=== PATIENT | male | born 2000 | race Hispanic/Latino ===

== ENCOUNTER 2022-06-04 22:55 | Emergency (ER) | payer OTHER, SELFPAY ==
[2022-06-04 23:00] VITALS: BP 134/70; PULSE 76; RESP 17; TEMP 36.6; O2SAT 98; BMI 29.7
--- NOTE | 2022-06-05 01:02 | ED_ITS ---
HPI - Wound/Laceration General Chief Complaint: Wound/Laceration Stated Complaint: gash on top of the head Time Seen by Provider: 06/05/22 00:52 Source: patient Mode of arrival: Ambulatory History of Present Illness HPI narrative: Patient works at the [employer]. Patient was finishing but his shift. He was picking up items off the ground. When he stood up he hit his head against a metal bolt. No loss of consciousness. However he has been sensitive to light and sound since injury. He has improved though. No nausea or vomiting. No vision changes. Injury occurred just prior to arrival. Has small puncture wound to the top of his scalp. Tetanus is up-to-date. Related Data Home Medications Medication Instructions Recorded Confirmed No Known Home Medications 06/04/22 06/04/22 Allergies Allergy/AdvReac Type Severity Reaction Status Date / Time No Known Drug Allergies Allergy Verified 06/04/22 23:03 Review of Systems Review of Systems Narrative: GENERAL: negative chills, fatigue, malaise, fever, sweats. HEENT: negative sinus pain, ear pain, sore throat RESPIRATORY: negative dyspnea, cough CARDIOVASCULAR: negative chest pain, palpitations GASTROINTESTINAL: negative nausea, vomiting, abdominal pain : negative dysuria, frequency, hematuria MUSCULOSKELETAL: negative muscle or bony pain SKIN: negative rash, skin lesions, positive skin injury NEUROLOGIC: negative weakness, numbness, no altered mental stat ROS Unobtainable: All systems reviewed & are unremarkable except as noted in HPI and below Patient History Social History Smoking Status: Never smoker Smoking Status: Never smoker alcohol intake frequency: other Substance Use Type: does not use Exam Narrative Exam Narrative: GENERAL: in no distress, not toxic not dyspneic HEAD: Normocephalic. There is a small 0.5 cm puncture wound/laceration to the top of the scalp just left of midline. Bleeding is controlled. No foreign body seen. Based visualized. No active bleeding. No crepitus or step-off. EYES: Pupils equal round NECK: Trachea midline. NEURO: AOx4. Clear speech. SKIN: Warm and dry PSYCH: Not anxious, is cooperative Initial Vital Signs Initial Vital Signs: Vital Signs Temperature 98 F 06/04/22 23:00 Pulse Rate 76 06/04/22 23:00 Respiratory Rate 17 06/04/22 23:00 Blood Pressure 134/70 06/04/22 23:00 Pulse Oximetry 98 06/04/22 23:00 Oxygen Delivery Method 06/04/22 23:00 Procedures Laceration Repair Laceration 1: Time of procedure: 01:06 Site: scalp Size (cm): 0.5 Description: linear and clean Depth: simple, single layer Local Anesthetic: other anesthetic (No anesthetic required) Pre-repair: wound explored, irrigated extensively, deep structures intact and cleansed with chlorhexadine Skin layer closed with: brissa (1 staple) Course Orders Ordered: Discontinued Medications Bacitracin (Bacitracin Oint 0.9 Gm Pckt) 1 applic TOP NOW ONE Stop: 06/05/22 01:02 Last Admin: 06/05/22 01:06 Dose: 1 applic Documented By: NMBianka Vital Signs Vital signs: Vital Signs - 8 hr 06/04/22 23:00 Temperature 98 F Pulse Rate 76 Respiratory Rate 17 Blood Pressure 134/70 Pulse Oximetry 98 Oxygen Delivery Method Room Air MDM - Wound/Laceration Differential Diagnosis Differential diagnosis: Likely laceration and avulsion of skin MDM Narrative Medical decision making narrative: Patient works at the [employer]. Patient was finishing but his shift. He was picking up items off the ground. When he stood up he hit his head against a metal bolt. No loss of consciousness. However he has been sensitive to light and sound since injury. He has improved though. No nausea or vomiting. No vision changes. Injury occurred just prior to arrival. Has small puncture wound to the top of his scalp. Tetanus is up-to-date. After exam and history. No imaging or blurry indicated. No loss of consciousness no altered mental status. No focal neuro deficits. [facility] CC: ?Head injury/laceration ? Complicating co-morbidities: ?None ? Data collected from: Patient ? Medical records reviewed: ?No previous visits ? Differential considered: ?Laceration/puncture wound/concussion/head injury/abrasion but not limited to these ? Exam documented above, pertinent findings include: 0.5 cm laceration to top of scalp ? Treatments: Staple used for laceration repair ? Re-evaluations: Return precautions reviewed with patient. No new issues ? Discussion: Appropriate for discharge home. Exam reassuring. No blood work or imaging indicated. No loss of consciousness. Tetanus up-to-date. Return precautions reviewed with patient. Patient tolerated staple repair very well. ? Diagnosis: Scalp laceration ? Disposition: see below, along with detailed discharge instructions that have been reviewed with patient as well as indications for ED re-evaluation and additional outpatient follow up Discharge Plan Departure Patient Disposition: Home Clinical Impression: Laceration Instructions: DI for Laceration Repair -- [place] Activity Restrictions/Additional Instructions: See family doctor or base medical office in 7 days to have 1 staple removed. Clean wound daily with warm soap and water and apply thin layer of topical antibiotic. May shower but no hard scrubbing or submersion of head under water. Return if worse if any questions or concerns. Prescriptions: No Action No Known Home Medications Referrals: ProviderAlaina [Primary Care Provider] - Stand Alone Forms: Patient Portal/API, Work Release Note
[2022-06-05] MEDS: BACITRACIN OINT 0.9 GM PCKT 1 APPLIC TOP (01:06)
[2022-06-05 01:08] VITALS: BP 118/78; PULSE 68; RESP 12; O2SAT 99
== END 2022-06-05 01:09 | disposition home or self-care (01) ==
PROVIDERS: Emergency Provider Emergency Medicine
DX: S01.01XA Laceration without foreign body of scalp, initial encounter (principal); W22.8XXA Striking against or struck by other objects, initial encounter
CPT/HCPCS: 12001; 99283